=== PATIENT | male | born 1965 | race Caucasian/White ===

== ENCOUNTER 2019-05-06 15:25 | Inpatient (IN) | payer OTHER ==
[2019-05-06 15:46] LABS: ABSOLUTE EOSINOPHILS # (AUTO) 0.1 10^3/uL (0.0-0.6); ABSOLUTE LYMPHOCYTES (AUTO) 1.4 10^3/uL (0.5-4.7); ABSOLUTE MONOCYTES (AUTO) 0.6 10^3/uL (0.1-1.4); ABSOLUTE NEUT (AUTO) 1.5 10^3/uL (1.7-8.2); BASOPHILS % (AUTO) 0.5 % (0-2); EOSINOPHILS % (AUTO) 2.8 % (0-6); HEMATOCRIT 41.4 % (37.9-51.0); HEMOGLOBIN 14.4 g/dL (13.5-17.0); LYMPHOCYTES % (AUTO) 38.2 % (13-45); MEAN CORPUSCULAR HEMOGLOBIN 31.9 pg (27.0-33.4); MEAN CORPUSCULAR HGB CONC 34.8 g/dL (32.0-36.0); MEAN CORPUSCULAR VOLUME 92 fl (80-97); MONOCYTES % (AUTO) 15.7 % (3-13); PLATELET COUNT 163 10^3/uL (150-450); RED BLOOD COUNT 4.52 10^6/uL (4.35-5.55); RED CELL DISTRIBUTION WIDTH 12.6 % (11.5-14.0); SEGMENTED NEUTROPHILS % (AUTO) 42.8 % (42-78); TOTAL CELLS COUNTED % (AUTO) 100 %; WHITE BLOOD COUNT 3.6 10^3/uL (4.0-10.5)
--- NOTE | 2019-05-06 16:07 | ER Document Report ---
ED Medical Screen (RME) - General Chief Complaint: Chest Congestion Stated Complaint: CHEST PAIN Time Seen by Provider: 05/06/19 16:02 Mode of Arrival: Medic Information source: Parent Notes: 53-year-old male presented to ED for feeling cold jittery and shaky with chest pain with shortness of breath earlier. He states is no longer having any pain or shortness of breath. He states he took some decongestant at home. He states he is not had any other medications today. He is alert oriented respirations regular nonlabored. He did come by EMS but they did not give him any medications. I have greeted and performed a rapid initial assessment of this patient. A comprehensive ED assessment and evaluation of the patient, analysis of test results and completion of medical decision making process will be conducted by an additional ED providers. - Related Data Allergies/Adverse Reactions: amoxicillin Allergy (Verified 05/06/19 15:30) Penicillins Allergy (Verified 05/06/19 15:30) tetracycline Allergy (Verified 05/06/19 15:30) Past Medical History - General Information source: Patient - Social History Cigarette use (# per day): Yes Frequency of alcohol use: None Drug Abuse: None Lives with: Family Family history: Reviewed & Not Pertinent - Past Medical History Cardiac Medical History: Reports: None Pulmonary Medical History: Reports: None EENT Medical History: Reports: None Neurological Medical History: Reports: Hx Seizures Endocrine Medical History: Reports: None Renal/ Medical History: Reports: None Malignancy Medical History: Reports None GI Medical History: Reports: None Musculoskeltal Medical History: Reports None Skin Medical History: Reports None Psychiatric Medical History: Reports: None Traumatic Medical History: Reports: None Infectious Medical History: Reports: None Past Surgical History: Reports: Hx Neurologic Surgery - 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
[2019-05-06 16:18] LABS: ALBUMIN 4.4 g/dL (3.5-5.0); ALKALINE PHOSPHATASE 60 U/L (38-126); ANION GAP 9 (5-19); ASPARTATE AMINO TRANSFERASE 34 U/L (17-59); BILIRUBIN,DIRECT 0.2 mg/dL (0.0-0.4); BILIRUBIN,TOTAL 1.1 mg/dL (0.2-1.3); BLOOD UREA NITROGEN 16 mg/dL (7-20); CALCIUM 8.6 mg/dL (8.4-10.2); CARBON DIOXIDE 26 mmol/L (22-30); CHLORIDE 90 mmol/L (98-107); CREATINE KINASE 144 U/L (55-170); GLUCOSE 94 mg/dL (75-110); POTASSIUM 3.5 mmol/L (3.6-5.0); TOTAL PROTEIN 7.4 g/dL (6.3-8.2)
[2019-05-06 16:28] LABS: CREATINE KINASE MB 4.07 ng/mL (<4.55)
--- NOTE | 2019-05-06 16:28 | ER Document Report ---
ED General - General Chief Complaint: Chest Congestion Stated Complaint: CHEST PAIN Time Seen by Provider: 05/06/19 16:02 Primary Care Provider: DENNIS CRUZ PA-C [Primary Care Provider] - Follow up as needed Mode of Arrival: [facility] - [facility] Notes: Patient is a 53-year-old male who presents complaining of palpitations and feeling dizzy began at 7 AM today. Patient states that his palpitations were worse this morning and were intermittent for the next several hours. He did have CP this morning that has since resolved when he was having the palpitations. Patient does report some nasal congestion and discharge, but no other fever cough. He does have a history of seizures (lobectomy-Rt) and is on Keppra. He does not take any other medicines daily. Patient states that he does feel some fatigue at this time as well. He has been able to eat and drink, but does have decreased p.o. intake. He is urinating normally and having normal bowel movements. Denies any headache, fever, neck pain, changes in vision/speech/mentation/hearing, URI, sore throat, syncope, cough, shortness of breath, wheeze, dyspnea, abdominal pain, nausea/vomiting/diarrhea, urinary retention, dysuria, hematuria, loss of control of bowel or bladder, numbness/tingling, saddle anesthesia, muscle paralysis/weakness, or rash. - Related Data Allergies/Adverse Reactions: amoxicillin Allergy (Verified 05/06/19 15:30) Penicillins Allergy (Verified 05/06/19 15:30) tetracycline Allergy (Verified 05/06/19 15:30) Past Medical History - General Information source: Patient - Social History Smoking Status: Former Smoker Cigarette use (# per day): Yes Frequency of alcohol use: None Drug Abuse: None Lives with: Family Family History: Reviewed & Not Pertinent Patient has suicidal ideation: No Patient has homicidal ideation: No - Past Medical History Cardiac Medical History: Reports: None Pulmonary Medical History: Reports: None EENT Medical History: Reports: None Neurological Medical History: Reports: Hx Seizures Endocrine Medical History: Reports: None Renal/ Medical History: Reports: None Malignancy Medical History: Reports None GI Medical History: Reports: None Musculoskeletal Medical History: Reports None Skin Medical History: Reports None Psychiatric Medical History: Reports: None Traumatic Medical History: Reports: None Infectious Medical History: Reports: None Past Surgical History: Reports: Hx Neurologic Surgery - 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 A&Ox4. Ans wers questions appropriately. HEAD: Atraumatic, normocephalic. EYES: Pupils equal round and reactive to light, extraocular movements intact, sclera anicteric, conjunctiva are normal. ENT: Nares patent and without discharge. oropharynx clear without exudates. No tonsilar hypertrophy or erythema. Moist mucous membranes. NECK: Normal range of motion, supple without lymphadenopathy LUNGS: Breath sounds clear to auscultation bilaterally and equal. No wheezes rales or rhonchi. HEART: Regular rate and rhythm without murmurs, rubs, gallops. ABDOMEN: Soft, nontender, nondistended abdomen. No guarding, no rebound. Normal bowel sounds present. No CVA tenderness bilaterally. Musculoskeletal: FROM to passive/active. Strength 5+/5. Rubi neg. No asymmetry to LE's. Extremities: No cyanosis, clubbing, or edema b/l. Peripheral pulses 2+. Capillary refill less than 3 seconds. NEUROLOGICAL: Normal speech, normal gait. Cranial nerves grossly intact. NIH 0, GCS 15. PSYCH: flat affect. SKIN: Warm, Dry, normal turgor, no rashes or lesions noted. Course - Re-evaluation Re-evalutation: 05/06/19 17:45 I have been reviewing with Dr. Castro who is in agreement with admit/plan. 17:50 then again at 17:57 I spoke with hospitalist, Dr. Moyer, wants to add cortisol and for me to speak with Cardio in the meantime. 17:58 Dr. Lopez has no recommendations at this time. 18:[address] Moyer who wanted me to then speak to Dr. Tran, air press operator. Dr. Tran is not excited and does not believe this to warrant ICU. 18:06 I spoke again with Dr. Moyer who would like the cortisol level and to call him back. 05/06/19 18:50 Dr. Moyer wants me to talk with Dr. Yost when he is signed in. He did relay the case to him already. 05/06/19 21:[address] head negative. Call placed to Dr. Yost. 05/06/19 21:34 Dr. Yost believes this needs to go to ICU. Pt's BP currently 93/60. Solu- cortef IV ordered and anothe 500ml saline bolus. Call placed to ICU/air press operator. 05/06/19 22:39 I spoke in length with Alexis Westbrook PA-C, air press operator, regarding this patient. He does not believe this to be an ICU case and will talk with his supervising Dr. Tran who has already been initially updated about this patient. They will let me know thereafter about location to admit. 05/06/19 23:40 I spoke with Alexis Westbrook and he spoke with Dr. Tran and they are not accepting to the ICU. Call placed again to Dr. Yost. 05/07/19 00:00 Dr. Yost accepted to IMCU. - Vital Signs Vital signs: Temp Pulse Resp BP Pulse Ox 97.9 F 48 L 14 90/59 L 98 05/06/19 22:23 05/06/19 15:35 05/06/19 22:01 05/06/19 22:00 05/06/19 22:01 - Laboratory Result Diagrams: 05/06/19 14:53 05/06/19 14:53 Laboratory results interpreted by me: 05/06/19 05/06/19 05/06/19 14:53 14:53 20:01 WBC 3.6 L Lamar % (Auto) 15.7 H Absolute Neuts (auto) 1.5 L Sodium 125.3 L Potassium 3.5 L Chloride 90 L Urine Ketones 20 H Discharge - Discharge Clinical Impression: Bradycardia, Hyponatremia Hypothermia Qualifiers: Encounter type: initial encounter Qualified Code(s): T68.XXXA - Hypothermia, initial encounter Condition: Stable Disposition: ADMITTED INPATIENT Admitting Provider: Priyank (Hospitalist) Unit Admitted: IMCU Referrals: DENNIS CRUZ PA-C [Primary Care Provider] - Follow up as needed
--- NOTE | 2019-05-06 16:29 | RADIOLOGY REPORT (SQ) ---
EXAM DESCRIPTION: CHEST SINGLE VIEW COMPLETED DATE/TIME: 05/06/2019 4:17 pm REASON FOR STUDY: chest pain COMPARISON: None. TECHNIQUE: Single frontal radiographic view of the chest acquired. NUMBER OF VIEWS: One view. LIMITATIONS: None. FINDINGS: LUNGS AND PLEURA: No pneumothorax. No consolidation or pleural effusion. MEDIASTINUM AND HILAR STRUCTURES: Normal. HEART AND VASCULAR STRUCTURES: Normal. BONES: No acute findings. HARDWARE: None in the chest. OTHER: No other significant finding. IMPRESSION: NO ACUTE FINDINGS. TECHNICAL DOCUMENTATION: JOB ID: [id number] [place]-72 2010 [email or web address]- All Rights Reserved Reading location - IP/workstation name: [email or web address]
[2019-05-06] MEDS ORDERED: NORMAL SALINE 1000 ML 1,000 ML IV ONE ×2 (16:34→17:41)
[2019-05-06 16:37] LABS: TROPONIN I < 0.012 ng/mL
--- NOTE | 2019-05-06 19:12 | Progress Note ---
Provider Note Provider Note: Asked to evaluate this patient for the ICU. He is mildly hypothermic at 95 but on a warming blanket. Hyponatremic at 125. Drinks 7-8 large glasses of water a day. Likely polydipsia.. Cortisol a bit low at 19. Hydrocortisone, fluid restriction and warming blanket. He does not need an ICU level of care. Critical care time 20 minutes.
--- NOTE | 2019-05-06 20:02 | EKG REPORT ---
SEVERITY:- NORMAL ECG - SINUS BRADYCARDIA : Confirmed by: Mónica Haney MD 06-May-2019 20:01:48
[2019-05-06 20:31] LABS: APPEARANCE,URINE CLEAR; BILIRUBIN,URINE NEGATIVE (NEGATIVE); COLOR,URINE YELLOW; GLUCOSE, URINE NEGATIVE (NEGATIVE); KETONES,URINE 20 mg/dL (NEGATIVE); PROTEIN,URINE NEGATIVE (NEGATIVE); UROBILINOGEN,URINE NEGATIVE mg/dL (<2.0)
[2019-05-06 20:45] LABS: URINE AMPHETAMINES SCREEN NEGATIVE; URINE BARBITURATES SCREEN NEGATIVE; URINE BENZODIAZEPINES SCREEN NEGATIVE; URINE COCAINE SCREEN NEGATIVE; URINE MARIJUANA (THC) SCREEN NEGATIVE; URINE METHADONE SCREEN NEGATIVE; URINE PHENCYCLIDINE SCREEN NEGATIVE
--- NOTE | 2019-05-06 21:08 | RADIOLOGY REPORT (SQ) ---
EXAM DESCRIPTION: CT HEAD WITHOUT IV CONTRAST COMPLETED DATE/TME: 05/06/2019 19:38 CLINICAL HISTORY: 53 years, Male, hypothermia, hypotensive, h/o rt temp lobectomy COMPARISON: None. TECHNIQUE: Noncontrast CT of the head was performed. Coronal and sagittal reformations were created. Images stored on PACS. All CT scanners at this facility use dose modulation, iterative reconstruction, and/or weight based dosing when appropriate to reduce radiation dose to as low as reasonably achievable (ALARA). [facility]: Dose Right [facility]: CareDose [facility]: Dose Right [facility]: Teradose 4D [facility]: Geospiza LIMITATIONS: None. FINDINGS: Evaluation of the brain parenchyma reveals mild periventricular and patchy subcortical white matter low attenuation. In addition, there are postsurgical changes of right temporoparietal craniotomy with a zone of encephalomalacia located about the right temporal lobe, indicating a resection cavity. No acute intracranial hemorrhage, mass effect, or extra-axial fluid is seen. The ventricles and sulcal spaces are overall normal in size and configuration. Curvilinear calcification located about the posterior aspect of the right temporal lobe encephalomalacia actually corresponds to choroid plexus calcification within the right lateral ventricle. Globes and orbits show no acute abnormality. Mild opacity is noted about the bilateral maxillary antra as well as within the ethmoidal air cells. Remaining paranasal sinuses and mastoid air cells are clear. There are no depressed skull fractures. The sella is partially empty. IMPRESSION: No acute intracranial abnormality. Mild chronic microvascular ischemic change. Postsurgical changes of right temporoparietal craniotomy with resection cavity about the right temporal lobe. TECHNICAL DOCUMENTATION: Quality ID # [id number]: Final reports with documentation of one or more dose reduction techniques (e.g., Automated exposure control, adjustment of the mA and/or kV according to patient size, use of iterative reconstruction technique) copyright 2010 [email or web address]- All Rights Reserved
[2019-05-06] MEDS ORDERED: HYDROCORTISONE SOD SUCCINATE INJ/PF 100 MG/2 ML SDV IV ONE (21:31)
[2019-05-06] MEDS ORDERED: NORMAL SALINE 500 ML IV ONE (21:31)
[2019-05-06] MEDS: LEVETIRACETAM 500 MG TABLET PO ONE ×2 (22:30→22:39)
[2019-05-06] MEDS ORDERED: LEVETIRACETAM 500 MG/NACL-ISO 500 MG/100 ML RTUPB IV ONE (22:39)
[2019-05-07] MEDS ORDERED: MAG HYDROX/AL HYDROX/SIMETH SUSP 30 ML UDCUP PO PRN (00:01)
[2019-05-07] MEDS ORDERED: IPRATROPIUM/ALBUTEROL 0.5-2.5 MG/3 ML AMPUL NEB PRN (00:01)
[2019-05-07 00:29] LABS: ANION GAP 7 (5-19); BLOOD UREA NITROGEN 12 mg/dL (7-20); CALCIUM 7.9 mg/dL (8.4-10.2); CARBON DIOXIDE 23 mmol/L (22-30); CHLORIDE 98 mmol/L (98-107); PHOSPHORUS 2.4 mg/dL (2.5-4.5); POTASSIUM 3.4 mmol/L (3.6-5.0)
[2019-05-07 00:35] LABS: GLUCOSE 69 mg/dL (75-110)
[2019-05-07 00:50] LABS: CREATINE KINASE MB 3.26 ng/mL (<4.55)
[2019-05-07 00:51] LABS: TROPONIN I < 0.012 ng/mL
[2019-05-07] MEDS: NORMAL SALINE 1000 ML 1,000 ML IV PRN ×2 (01:11→05:51)
[2019-05-07] MEDS ORDERED: DOPAMINE HCL/DEXTROSE 5%-WATER 800 MG/250 ML RTUINJ IV PRN ×2 (01:55)
[2019-05-07] MEDS ORDERED: PHOSPHORUS #1 250 MG TABLET PO ONE (04:37)
[2019-05-07] MEDS ORDERED: DEXTROSE 50%-WATER 25 GM/50 ML DISP.SYRIN IV ONE (04:38)
[2019-05-07] MEDS: HYDROCORTISONE SOD SUCCINATE INJ/PF 100 MG/2 ML SDV IV SCH ×3 (05:49→20:17)
[2019-05-07] MEDS: HEPARIN SOD (PORCINE) 5,000 UNIT/ML 1 ML VIAL SUBCUT SCH ×3 (05:49→21:18)
[2019-05-07] MEDS: ACETAMINOPHEN 325 MG TABLET PO PRN ×2 (05:50→21:17)
--- NOTE | 2019-05-07 06:43 | PDOC H&P ---
History of Present Illness Admission Date/PCP: 05/07/19 00:03 DENNIS CRUZ PA-C Patient complains of: Dizziness History of Present Illness: NISA BANERJEE is a 53 year old male with a past medical history of epilepsy on Keppra who presents with several days of fatigue developing palpitations and dizziness upon standing prompting evaluation emergency room where he is found to have bradycardia, hypotension, hypothermia, hypokalemia and hyponatremia. Patient denies previous episode other than being told of low blood pressure by primary doctor in the past. denying recent headache, back pain, excessive fatigue, heat intolerance, steroid, diet supplementation or drugs. 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 Past Medical History Cardiac Medical History: Reports: None Pulmonary Medical History: Reports: None EENT Medical History: Reports: None Neurological Medical History: Reports: Seizures Endocrine Medical History: Reports: None Renal/ Medical History: Reports: None Malignancy Medical History: Reports: None GI Medical History: Reports: None Musculoskeltal Medical History: Reports: None Skin Medical History: Reports: None Psychiatric Medical History: Reports: None Traumatic Medical History: Reports: None Infectious Medical History: Reports: None Social History Information Source: Patient, Emergency Med Personnel Lives with: Family Smoking Status: Former Smoker Frequency of Alcohol Use: None Drugs: None - Advance Directive Resuscitation Status: Full Code Family History Family History: Thyroid Disfunction Parental Family History Reviewed: Yes Children Family History Reviewed: Yes Sibling(s) Family History Reviewed.: Yes Medication/Allergy Allergies/Adverse Reactions: amoxicillin Allergy (Verified 05/06/19 15:30) Penicillins Allergy (Verified 05/06/19 15:30) tetracycline Allergy (Verified 05/06/19 15:30) Review of Systems Constitutional: ABSENT: chills, fever(s), headache(s), weight gain, weight loss Eyes: ABSENT: visual disturbances Ears: ABSENT: hearing changes Cardiovascular: ABSENT: chest pain, dyspnea on exertion, edema, orthropnea, palpitations Respiratory: ABSENT: cough, hemoptysis Gastrointestinal: ABSENT: abdominal pain, constipation, diarrhea, hematemesis, hematochezia, nausea, vomiting Genitourinary: ABSENT: dysuria, hematuria Musculoskeletal: ABSENT: joint swelling Integumentary: ABSENT: rash, wounds Neurological: ABSENT: abnormal gait, abnormal speech, confusion, dizziness, focal weakness, syncope Psychiatric: ABSENT: anxiety, depression, homidical ideation, suicidal ideation Endocrine: ABSENT: cold intolerance, heat intolerance, polydipsia, polyuria Hematologic/Lymphatic: ABSENT: easy bleeding, easy bruising Physical Exam Vital Signs: Temp Pulse Resp BP Pulse Ox 97.9 F 56 L 20 89/45 L 97 05/07/19 03:59 05/07/19 03:59 05/07/19 03:59 05/07/19 03:59 05/07/19 03:59 Intake & Output 05/05/19 05/06/19 05/07/19 11:59 11:59 11:59 Intake Total 3619 Output Total 1600 Balance 2019 Weight 64.3 kg General appearance: PRESENT: no acute distress, cooperative, thin, well- developed, well-nourished. ABSENT: disheveled Head exam: PRESENT: atraumatic, normocephalic Eye exam: PRESENT: conjunctiva pink, EOMI, PERRLA. ABSENT: scleral icterus Ear exam: PRESENT: normal external ear exam Mouth exam: PRESENT: moist, tongue midline Neck exam: ABSENT: carotid bruit, JVD, lymphadenopathy, thyromegaly Respiratory exam: PRESENT: clear to auscultation thad. ABSENT: rales, rhonchi, wheezes Cardiovascular exam: PRESENT: bradycardia, +S1, +S2. ABSENT: diastolic murmur, rubs, systolic murmur Pulses: PRESENT: normal dorsalis pedis pul Vascular exam: PRESENT: normal capillary refill GI/Abdominal exam: PRESENT: normal bowel sounds, soft. ABSENT: distended, guarding, mass, organolmegaly, rebound, tenderness Rectal exam: PRESENT: deferred Extremities exam: PRESENT: full ROM. ABSENT: calf tenderness, clubbing, pedal edema Neurological exam: PRESENT: alert, awake, oriented to person, oriented to place, oriented to time, oriented to situation, CN II-XII grossly intact. ABSENT: motor sensory deficit Psychiatric exam: PRESENT: appropriate affect, normal mood. ABSENT: homicidal ideation, suicidal ideation Skin exam: PRESENT: dry, intact, warm. ABSENT: cyanosis, rash Results Laboratory Results: 05/06/19 14:53 05/06/19 23:40 05/06/19 05/06/19 05/06/19 14:53 14:53 15:38 WBC 3.6 L RBC 4.52 Hgb 14.4 Hct 41.4 MCV 92 MCH 31.9 MCHC 34.8 RDW 12.6 Plt Count 163 Seg Neutrophils % 42.8 Sodium 125.3 L Potassium 3.5 L Chloride 90 L Carbon Dioxide 26 Anion Gap 9 BUN 16 Creatinine 0.67 Est GFR ( Amer) > 60 Glucose 94 Calcium 8.6 Phosphorus Magnesium 1.8 Total Bilirubin 1.1 AST 34 Alkaline Phosphatase 60 Total Protein 7.4 Albumin 4.4 TSH Urine Color Urine Appearance Urine pH Ur Specific Carlock Urine Protein Urine Glucose (UA) Urine Ketones Urine Blood Urine RBC (Auto) 05/06/19 05/06/19 05/06/19 15:38 20:01 23:40 WBC RBC Hgb Hct MCV MCH MCHC RDW Plt Count Seg Neutrophils % Sodium 127.7 L Potassium 3.4 L Chloride 98 Carbon Dioxide 23 Anion Gap 7 BUN 12 Creatinine 0.64 Est GFR ( Amer) > 60 Glucose 69 L Calcium 7.9 L Phosphorus 2.4 L Magnesium 1.9 Total Bilirubin AST Alkaline Phosphatase Total Protein Albumin TSH 4.19 Urine Color YELLOW Urine Appearance CLEAR Urine pH 6.0 Ur Specific Carlock 1.010 Urine Protein NEGATIVE Urine Glucose (UA) NEGATIVE Urine Ketones 20 H Urine Blood NEGATIVE Urine RBC (Auto) 0 05/06/19 05/06/19 05/06/19 14:53 14:53 18:01 Creatine Kinase 144 CK-MB (CK-2) 4.07 Troponin I < 0.012 < 0.012 05/06/19 05/06/19 23:40 23:40 Creatine Kinase 109 CK-MB (CK-2) 3.26 Troponin I < 0.012 Impressions: Chest X-Ray 05/06/19 15:27 IMPRESSION: NO ACUTE FINDINGS. Head CT 05/06/19 19:38 IMPRESSION: No acute intracranial abnormality. Mild chronic microvascular ischemic change. Postsurgical changes of right temporoparietal craniotomy with resection cavity about the right temporal lobe. TECHNICAL DOCUMENTATION: Quality ID # 436: Final reports with documentation of one or more dose reduction techniques (e.g., Automated exposure control, adjustment of the mA and/or kV according to patient size, use of iterative reconstruction technique) copyright 2011 [employer]- All Rights Reserved Assessment and Plan - Diagnosis (1) Adrenal insufficiency Is this a current diagnosis for this admission?: Yes Plan: Atypical with hypo-thermia and bradycardia but probable adrenal insufficiency from unclear cause, Solu-Cortef continued consider cosyntropin stim test (2) Hypotension Is this a current diagnosis for this admission?: Yes Plan: Solu-Cortef and IV fluids, follow-up orthostatic blood pressure (3) Hypokalemia Is this a current diagnosis for this admission?: Yes Plan: Likely secondary to #1, potassium repletion. Follow-up chemistry (4) Hypophosphatemia Is this a current diagnosis for this admission?: Yes Plan: Unclear cause, check vitamin D level K-Phos repletion ordered (5) Bradycardia Is this a current diagnosis for this admission?: Yes Plan: Unclear cause, follow-up telemetry and head CT, consider MRI (6) Hyponatremia Is this a current diagnosis for this admission?: Yes Plan: Normal saline challenge, follow-up chemistry (7) Hypothermia Qualifiers: Encounter type: initial encounter Qualified Code(s): T68.XXXA - Hypothermia, initial encounter Is this a current diagnosis for this admission?: Yes Plan: Follow-up TSH and cosyntropin stim test - Time Time Spent with patient: 25-34 minutes - Inpatient Certification Medical Necessity: Need Close Monitoring Due to Risk of Patient Decompensation
[2019-05-07 07:20] LABS: CREATINE KINASE MB 2.94 ng/mL (<4.55); TROPONIN I < 0.012 ng/mL
[2019-05-07] MEDS: PHOSPHORUS #1 250 MG TABLET PO SCH ×4 (08:17→21:17)
[2019-05-07] MEDS ORDERED: SUMATRIPTAN SUCCINATE 100 MG TABLET PO PRN (11:40)
[2019-05-07] MEDS ORDERED: LEVETIRACETAM 500 MG/NACL-ISO 500 MG/100 ML RTUPB IV ONE (12:15)
[2019-05-07 13:16] LABS: CREATINE KINASE MB 3.35 ng/mL (<4.55)
[2019-05-07 13:22] LABS: FREE T3 1.62 pg/mL (2.77-5.27); FREE T4 (FREE THYROXINE) 0.89 ng/dL (0.78-2.19)
[2019-05-07 13:26] LABS: TROPONIN I < 0.012 ng/mL
[2019-05-07 13:35] LABS: THYROID STIMULATING HORMONE 1.26 uIU/mL (0.47-4.68)
[2019-05-07] MEDS: LEVETIRACETAM 500 MG/NACL-ISO 500 MG/100 ML RTUPB IV SCH (21:18)
[2019-05-08] MEDS: HEPARIN SOD (PORCINE) 5,000 UNIT/ML 1 ML VIAL SUBCUT SCH ×3 (05:19→21:23)
[2019-05-08] MEDS: HYDROCORTISONE SOD SUCCINATE INJ/PF 100 MG/2 ML SDV IV SCH ×3 (05:22→21:22)
[2019-05-08 07:19] LABS: ABSOLUTE LYMPHOCYTES (AUTO) 0.7 10^3/uL (0.5-4.7); ABSOLUTE MONOCYTES (AUTO) 0.5 10^3/uL (0.1-1.4); ABSOLUTE NEUT (AUTO) 4.4 10^3/uL (1.7-8.2); BASOPHILS % (AUTO) 0.3 % (0-2); HEMATOCRIT 33.3 % (37.9-51.0); LYMPHOCYTES % (AUTO) 12.3 % (13-45); MEAN CORPUSCULAR HEMOGLOBIN 31.6 pg (27.0-33.4); MEAN CORPUSCULAR HGB CONC 34.7 g/dL (32.0-36.0); MEAN CORPUSCULAR VOLUME 91 fl (80-97); MONOCYTES % (AUTO) 8.2 % (3-13); PLATELET COUNT 149 10^3/uL (150-450); RED BLOOD COUNT 3.65 10^6/uL (4.35-5.55); RED CELL DISTRIBUTION WIDTH 12.8 % (11.5-14.0); SEGMENTED NEUTROPHILS % (AUTO) 79.2 % (42-78); TOTAL CELLS COUNTED % (AUTO) 100 %; WHITE BLOOD COUNT 5.5 10^3/uL (4.0-10.5)
[2019-05-08 07:20] LABS: HEMOGLOBIN 11.6 g/dL (13.5-17.0)
[2019-05-08] MEDS: LEVETIRACETAM 500 MG/NACL-ISO 500 MG/100 ML RTUPB IV SCH ×2 (09:15→21:22)
[2019-05-08] MEDS: MULTIVITAMIN TABLET PO SCH (09:15)
[2019-05-08 11:18] LABS: BLOOD UREA NITROGEN 10 mg/dL (7-20); CALCIUM 8.6 mg/dL (8.4-10.2); CHLORIDE 108 mmol/L (98-107); GLUCOSE 115 mg/dL (75-110)
[2019-05-08 11:35] LABS: ANION GAP 5 (5-19); CARBON DIOXIDE 27 mmol/L (22-30); POTASSIUM 3.3 mmol/L (3.6-5.0)
--- NOTE | 2019-05-08 17:18 | PDOC PROGRESS REPORT ---
Subjective Progress Note for:: 05/08/19 Subjective:: No adverse events overnight. No new complaints. Body temperature, heart rate, and blood pressure have been acceptable. Reason For Visit: HYPOTENSION,BRADYCARDIA,HYPOTHERMIA,ADRENAL INSUF Physical Exam Vital Signs: Temp Pulse Resp BP Pulse Ox 97.4 F 72 16 103/64 98 05/08/19 13:31 05/08/19 14:20 05/08/19 14:20 05/08/19 13:31 05/08/19 14:20 Intake & Output 05/07/19 05/08/19 05/09/19 06:59 06:59 06:59 Intake Total 3919 2495 100 Output Total 3600 1800 Balance 319 695 100 Weight 64.3 kg 65.3 kg General appearance: PRESENT: no acute distress, cooperative, thin Respiratory exam: PRESENT: clear to auscultation thad, symmetrical, unlabored. ABSENT: accessory muscle use, chest wall tenderness, crackles, prolonged expiratory phas, rhonchi, tachypnea, wheezes Cardiovascular exam: PRESENT: RRR, +S1, +S2 Pulses: PRESENT: normal carotid pulses Vascular exam: PRESENT: normal capillary refill GI/Abdominal exam: PRESENT: normal bowel sounds, soft. ABSENT: distended, guarding, rebound, tenderness Extremities exam: ABSENT: clubbing, pedal edema Musculoskeletal exam: PRESENT: normal inspection. ABSENT: deformity Neurological exam: PRESENT: alert, awake, oriented to person, oriented to place, oriented to situation Psychiatric exam: PRESENT: appropriate affect, normal mood Skin exam: PRESENT: dry, warm Results Laboratory Results: 05/08/19 06:39 05/08/19 06:39 05/08/19 05/08/19 06:39 06:39 WBC 5.5 RBC 3.65 L Hgb 11.6 L D Hct 33.3 L MCV 91 MCH 31.6 MCHC 34.7 RDW 12.8 Plt Count 149 L Seg Neutrophils % 79.2 H Sodium 139.9 Potassium 3.3 L Chloride 108 H Carbon Dioxide 27 Anion Gap 5 BUN 10 Creatinine 0.68 Est GFR ( Amer) > 60 Glucose 115 H Calcium 8.6 05/06/19 05/06/19 05/06/19 14:53 14:53 18:01 Creatine Kinase 144 CK-MB (CK-2) 4.07 Troponin I < 0.012 < 0.012 05/06/19 05/06/19 05/07/19 23:40 23:40 06:24 Creatine Kinase 109 119 CK-MB (CK-2) 3.26 Troponin I < 0.012 05/07/19 05/07/19 05/07/19 06:24 12:25 12:25 Creatine Kinase 124 CK-MB (CK-2) 2.94 3.35 Troponin I < 0.012 < 0.012 Impressions: Chest X-Ray 05/06/19 15:27 IMPRESSION: NO ACUTE FINDINGS. Head CT 05/06/19 19:38 IMPRESSION: No acute intracranial abnormality. Mild chronic microvascular ischemic change. Postsurgical changes of right temporoparietal craniotomy with resection cavity about the right temporal lobe. TECHNICAL DOCUMENTATION: Quality ID # 436: Final reports with documentation of one or more dose reduction techniques (e.g., Automated exposure control, adjustment of the mA and/or kV according to patient size, use of iterative reconstruction technique) copyright 2011 [employer]- All Rights Reserved Assessment and Plan - Diagnosis (1) Adrenal insufficiency Is this a current diagnosis for this admission?: Yes Plan: His heart rate, blood pressure, body temperature, and sodium have all normalized since starting steroids. I do not know if it is correlation or causation. However, the plan is to complete 3 days of stress dose steroids, and then to wait 24 hours off steroids and then do a cosyntropin stimulation test. Once the test results are in, he can be discharged home assuming that his condition remains good. The test will determine whether or not he will need steroid replacement therapy. He will also need to have a thyroid panel repeated in about 2 weeks. (2) Bradycardia Is this a current diagnosis for this admission?: Yes (3) Hyponatremia Is this a current diagnosis for this admission?: Yes (4) Hypotension Is this a current diagnosis for this admission?: Yes (5) Hypothermia Qualifiers: Encounter type: initial encounter Qualified Code(s): T68.XXXA - Hypothermia, initial encounter Is this a current diagnosis for this admission?: Yes - Time Time Spent with patient: 15-24 minutes
[2019-05-08] MEDS: ACETAMINOPHEN 325 MG TABLET PO PRN (21:22)
[2019-05-08] MEDS ORDERED: DIPHENHYDRAMINE HCL 25 MG/10 ML UDC PO ONE (22:00)
[2019-05-09] MEDS: HEPARIN SOD (PORCINE) 5,000 UNIT/ML 1 ML VIAL SUBCUT SCH ×3 (05:55→21:11)
[2019-05-09] MEDS: HYDROCORTISONE SOD SUCCINATE INJ/PF 100 MG/2 ML SDV IV SCH ×3 (05:57→21:14)
[2019-05-09] MEDS ORDERED: HYDROCORTISONE 1% CREAM 28.35 GM TP PRN (08:28)
--- NOTE | 2019-05-09 08:35 | PDOC PROGRESS REPORT ---
Subjective Progress Note for:: 05/09/19 Subjective:: 05/09/2019-maculopapular rash bilateral lower extremities Reason For Visit: HYPOTENSION,BRADYCARDIA,HYPOTHERMIA,ADRENAL INSUF Physical Exam Vital Signs: Temp Pulse Resp BP Pulse Ox 97.4 F 62 16 101/59 L 98 05/09/19 06:57 05/09/19 07:51 05/09/19 07:51 05/09/19 06:57 05/09/19 07:51 Intake & Output 05/08/19 05/09/19 05/10/19 06:59 06:59 06:59 Intake Total 2495 2341 Output Total 1800 3950 Balance 695 -1609 Weight 65.3 kg 65.9 kg General appearance: PRESENT: no acute distress, well-developed, well-nourished Neck exam: ABSENT: carotid bruit, JVD, lymphadenopathy, thyromegaly Respiratory exam: PRESENT: clear to auscultation thad. ABSENT: rales, rhonchi, wheezes Cardiovascular exam: PRESENT: RRR. ABSENT: diastolic murmur, rubs, systolic murmur Pulses: PRESENT: normal dorsalis pedis pul Vascular exam: PRESENT: normal capillary refill GI/Abdominal exam: PRESENT: normal bowel sounds, soft. ABSENT: distended, guarding, mass, organolmegaly, rebound, tenderness Extremities exam: PRESENT: full ROM. ABSENT: calf tenderness, clubbing, pedal edema Neurological exam: PRESENT: alert, awake, oriented to person, oriented to place, oriented to time, oriented to situation, CN II-XII grossly intact. ABSENT: motor sensory deficit Psychiatric exam: PRESENT: appropriate affect, normal mood. ABSENT: homicidal ideation, suicidal ideation Skin exam: PRESENT: other - Maculopapular rash consistent with contact dermatitis bilateral lower extremities Results Laboratory Results: 05/08/19 06:39 05/08/19 06:39 05/08/19 06:39 Sodium 139.9 Potassium 3.3 L Chloride 108 H Carbon Dioxide 27 Anion Gap 5 BUN 10 Creatinine 0.68 Est GFR ( Amer) > 60 Glucose 115 H Calcium 8.6 05/06/19 05/06/19 05/06/19 14:53 14:53 18:01 Creatine Kinase 144 CK-MB (CK-2) 4.07 Troponin I < 0.012 < 0.012 05/06/19 05/06/19 05/07/19 23:40 23:40 06:24 Creatine Kinase 109 119 CK-MB (CK-2) 3.26 Troponin I < 0.012 05/07/19 05/07/19 05/07/19 06:24 12:25 12:25 Creatine Kinase 124 CK-MB (CK-2) 2.94 3.35 Troponin I < 0.012 < 0.012 Impressions: Chest X-Ray 05/06/19 15:27 IMPRESSION: NO ACUTE FINDINGS. Head CT 05/06/19 19:38 IMPRESSION: No acute intracranial abnormality. Mild chronic microvascular ischemic change. Postsurgical changes of right temporoparietal craniotomy with resection cavity about the right temporal lobe. TECHNICAL DOCUMENTATION: Quality ID # 436: Final reports with documentation of one or more dose reduction techniques (e.g., Automated exposure control, adjustment of the mA and/or kV according to patient size, use of iterative reconstruction technique) copyright 2011 [employer]- All Rights Reserved Assessment and Plan - Diagnosis (1) Adrenal insufficiency Is this a current diagnosis for this admission?: Yes Plan: His heart rate, blood pressure, body temperature, and sodium have all normalized since starting steroids. I do not know if it is correlation or causation. However, the plan is to complete 3 days of stress dose steroids, and then to wait 24 hours off steroids and then do a cosyntropin stimulation test. Once the test results are in, he can be discharged home assuming that his condition remains good. The test will determine whether or not he will need steroid replacement therapy. He will also need to have a thyroid panel repeated in about 2 weeks. 05/09/2019-patient remains on steroids at this time stress dosing after 3 days patient will go off steroids for 24 hours due to drug cosyntropin stimulation test. If stable may be discharged home (2) Contact dermatitis Is this a current diagnosis for this admission?: Yes Plan: 05/09/2019-hydrocortisone cream 3 times daily as needed (3) Bradycardia Is this a current diagnosis for this admission?: Yes Plan: Unclear cause, follow-up telemetry and head CT, consider MRI 05/09/2019-heart rate in the 60s. Continue to follow (4) Hyponatremia Is this a current diagnosis for this admission?: Yes Plan: Normal saline challenge, follow-up chemistry 05/09/2019-stable (5) Hypotension Is this a current diagnosis for this admission?: Yes Plan: Solu-Cortef and IV fluids, follow-up orthostatic blood pressure 05/09/2019-stable continue to follow at this time (6) Hypothermia Qualifiers: Encounter type: initial encounter Qualified Code(s): T68.XXXA - Hypothermi a, initial encounter Is this a current diagnosis for this admission?: Yes Plan: Follow-up TSH and cosyntropin stim test 05/09/2019-temp 97.4. Stable continue to follow - Time Time Spent with patient: 15-24 minutes - Inpatient Certification Based on my medical assessment, after consideration of the patient's comorbidities, presenting symptoms, or acuity I expect that the services needed warrant INPATIENT care.: Yes I certify that my determination is in accordance with my understanding of Medicare's requirements for reasonable and necessary INPATIENT services [42 CFR 412.3e].: Yes Medical Necessity: Significant Comorbidiites Make Outpatient Treatment Too Risky, Need Close Monitoring Due to Risk of Patient Decompensation, Need For IV Fluids
[2019-05-09] MEDS ORDERED: POTASSIUM CHLORIDE 10 MEQ TABLET.ER PO ONE (09:00)
[2019-05-09] MEDS: MULTIVITAMIN TABLET PO SCH (09:09)
[2019-05-09] MEDS: LEVETIRACETAM 500 MG/NACL-ISO 500 MG/100 ML RTUPB IV SCH ×2 (09:54→21:13)
[2019-05-09] MEDS ORDERED: LEVETIRACETAM 500 MG TABLET PO SCH (10:00)
[2019-05-09] MEDS ORDERED: SUMATRIPTAN SUCCINATE 100 MG TABLET PO PRN (13:13)
[2019-05-09] MEDS: ACETAMINOPHEN 325 MG TABLET PO PRN (21:13)
[2019-05-10 05:08] LABS: HEMATOCRIT 32.2 % (37.9-51.0); HEMOGLOBIN 11.3 g/dL (13.5-17.0); MEAN CORPUSCULAR HEMOGLOBIN 32.6 pg (27.0-33.4); MEAN CORPUSCULAR HGB CONC 35.2 g/dL (32.0-36.0); MEAN CORPUSCULAR VOLUME 92 fl (80-97); PLATELET COUNT 140 10^3/uL (150-450); RED BLOOD COUNT 3.48 10^6/uL (4.35-5.55); RED CELL DISTRIBUTION WIDTH 12.9 % (11.5-14.0); WHITE BLOOD COUNT 5.4 10^3/uL (4.0-10.5)
[2019-05-10 05:35] LABS: ANION GAP 7 (5-19); BLOOD UREA NITROGEN 15 mg/dL (7-20); CALCIUM 8.7 mg/dL (8.4-10.2); CARBON DIOXIDE 28 mmol/L (22-30); CHLORIDE 104 mmol/L (98-107); GLUCOSE 118 mg/dL (75-110); POTASSIUM 3.6 mmol/L (3.6-5.0)
[2019-05-10] MEDS: HEPARIN SOD (PORCINE) 5,000 UNIT/ML 1 ML VIAL SUBCUT SCH ×3 (06:12→21:43)
[2019-05-10] MEDS: LEVETIRACETAM 500 MG/NACL-ISO 500 MG/100 ML RTUPB IV SCH ×2 (09:10→21:45)
[2019-05-10] MEDS: MULTIVITAMIN TABLET PO SCH (09:10)
--- NOTE | 2019-05-10 09:29 | PDOC PROGRESS REPORT ---
Subjective Progress Note for:: 05/10/19 Subjective:: 05/09/2019-maculopapular rash bilateral lower extremities 05/10/2019-no complaints Reason For Visit: HYPOTENSION,BRADYCARDIA,HYPOTHERMIA,ADRENAL INSUF Physical Exam Vital Signs: Temp Pulse Resp BP Pulse Ox 98.2 F 95 18 102/57 L 100 05/10/19 06:58 05/10/19 06:58 05/10/19 06:58 05/10/19 06:58 05/10/19 06:58 Intake & Output 05/09/19 05/10/19 05/11/19 06:59 06:59 06:59 Intake Total 2341 2120 Output Total 3950 5200 Balance -1609 -3080 Weight 65.9 kg 66.6 kg General appearance: PRESENT: no acute distress, well-developed, well-nourished Neck exam: ABSENT: carotid bruit, JVD, lymphadenopathy, thyromegaly Respiratory exam: PRESENT: clear to auscultation thad. ABSENT: rales, rhonchi, wheezes Cardiovascular exam: PRESENT: RRR. ABSENT: diastolic murmur, rubs, systolic murmur Pulses: PRESENT: normal dorsalis pedis pul Vascular exam: PRESENT: normal capillary refill GI/Abdominal exam: PRESENT: normal bowel sounds, soft. ABSENT: distended, guarding, mass, organolmegaly, rebound, tenderness Extremities exam: PRESENT: full ROM. ABSENT: calf tenderness, clubbing, pedal edema Neurological exam: PRESENT: alert, awake, oriented to person, oriented to place, oriented to time, oriented to situation, CN II-XII grossly intact. ABSENT: motor sensory deficit Psychiatric exam: PRESENT: appropriate affect, normal mood. ABSENT: homicidal ideation, suicidal ideation Skin exam: PRESENT: dry, intact, rash - Macular rash bilateral knees scattered down bilateral lower extremities, warm. ABSENT: cyanosis Results Laboratory Results: 05/10/19 04:00 05/10/19 04:00 05/10/19 05/10/19 04:00 04:00 WBC 5.4 RBC 3.48 L Hgb 11.3 L Hct 32.2 L MCV 92 MCH 32.6 MCHC 35.2 RDW 12.9 Plt Count 140 L Sodium 139.3 Potassium 3.6 Chloride 104 Carbon Dioxide 28 Anion Gap 7 BUN 15 Creatinine 0.70 Est GFR ( Amer) > 60 Glucose 118 H Calcium 8.7 05/06/19 05/06/19 05/06/19 14:53 14:53 18:01 Creatine Kinase 144 CK-MB (CK-2) 4.07 Troponin I < 0.012 < 0.012 05/06/19 05/06/19 05/07/19 23:40 23:40 06:24 Creatine Kinase 109 119 CK-MB (CK-2) 3.26 Troponin I < 0.012 05/07/19 05/07/19 05/07/19 06:24 12:25 12:25 Creatine Kinase 124 CK-MB (CK-2) 2.94 3.35 Troponin I < 0.012 < 0.012 Impressions: Chest X-Ray 05/06/19 15:27 IMPRESSION: NO ACUTE FINDINGS. Head CT 05/06/19 19:38 IMPRESSION: No acute intracranial abnormality. Mild chronic microvascular ischemic change. Postsurgical changes of right temporoparietal craniotomy with resection cavity about the right temporal lobe. TECHNICAL DOCUMENTATION: Quality ID # 436: Final reports with documentation of one or more dose reduction techniques (e.g., Automated exposure control, adjustment of the mA and/or kV according to patient size, use of iterative reconstruction technique) copyright 2011 [employer]- All Rights Reserved Assessment and Plan - Diagnosis (1) Adrenal insufficiency Is this a current diagnosis for this admission?: Yes Plan: His heart rate, blood pressure, body temperature, and sodium have all normalized since starting steroids. I do not know if it is correlation or causation. However, the plan is to complete 3 days of stress dose steroids, and then to wait 24 hours off steroids and then do a cosyntropin stimulation test. Once the test results are in, he can be discharged home assuming that his condition remains good. The test will determine whether or not he will need steroid replacement therapy. He will also need to have a thyroid panel repeated in about 2 weeks. 05/09/2019-patient remains on steroids at this time stress dosing after 3 days patient will go off steroids for 24 hours due to drug cosyntropin stimulation test. If stable may be discharged home 05/10/2019-cosyntropin stimulation test in the a.m. (2) Contact dermatitis Is this a current diagnosis for this admission?: Yes Plan: 05/09/2019-hydrocortisone cream 3 times daily as needed 05/10/2019-continue hydrocortisone cream (3) Bradycardia Is this a current diagnosis for this admission?: Yes Plan: Unclear cause, follow-up telemetry and head CT, consider MRI 05/09/2019-heart rate in the 60s. Continue to follow 05/10/2019-stable (4) Hyponatremia Is this a current diagnosis for this admission?: Yes Plan: Normal saline challenge, follow-up chemistry 05/09/2019-stable 05/10/2019-stable (5) Hypotension Is this a current diagnosis for this admission?: Yes Plan: Solu-Cortef and IV fluids, follow-up orthostatic blood pressure 05/09/2019-stable continue to follow at this time 05/10/2019-stable (6) Hypothermia Qualifiers: Encounter type: initial encounter Qualified Code(s): T68.XXXA - Hypothermia, initial encounter Is this a current diagnosis for this admission?: Yes Plan: Follow-up TSH and cosyntropin stim test 05/09/2019-temp 97.4. Stable continue to follow 05/10/2019-stable - Time Time Spent with patient: 15-24 minutes - Inpatient Certification Based on my medical assessment, after consideration of the patient's comorbidities, presenting symptoms, or acuity I expect that the services needed warrant INPATIENT care.: Yes I certify that my determination is in accordance with my understanding of Medicare's requirements for reasonable and necessary INPATIENT services [42 CFR 412.3e].: Yes Medical Necessity: Significant Comorbidiites Make Outpatient Treatment Too Risky, Need Close Monitoring Due to Risk of Patient Decompensation
[2019-05-10] MEDS ORDERED: NORMAL SALINE 1000 ML 1,000 ML IV PRN (10:54)
[2019-05-10] MEDS: MIDODRINE HCL 5 MG TABLET PO SCH ×2 (13:23→17:16)
[2019-05-11] MEDS ORDERED: DEXTROSE 40% GEL 15 GM TUBE PO PRN ×2 (06:37)
[2019-05-11] MEDS ORDERED: DEXTROSE 50%-WATER 25 GM/50 ML DISP.SYRIN IV PRN ×2 (06:37)
[2019-05-11] MEDS ORDERED: GLUCAGON,HUMAN RECOMB 1 MG INJ SUBCUT PRN (06:37)
[2019-05-11] MEDS: HEPARIN SOD (PORCINE) 5,000 UNIT/ML 1 ML VIAL SUBCUT SCH (07:53)
--- NOTE | 2019-05-11 09:11 | PDOC DISCHARGE SUMMARY ---
Impression - Admit/DC Date/PCP Admission Date/Primary Care Provider: 05/07/19 00:03 DENNIS CRUZ PA-C Discharge Date: 05/11/19 - Discharge Diagnosis (1) Adrenal insufficiency Is this a current diagnosis for this admission?: Yes (2) Contact dermatitis Is this a current diagnosis for this admission?: Yes (3) Bradycardia Is this a current diagnosis for this admission?: Yes (4) Hyponatremia Is this a current diagnosis for this admission?: Yes (5) Hypotension Is this a current diagnosis for this admission?: Yes (6) Hypothermia Is this a current diagnosis for this admission?: Yes - Additional Information Resuscitation Status: Full Code Discharge Diet: As Tolerated Discharge Activity: Activity As Tolerated Referrals: DENNIS CRUZ PA-C [Primary Care Provider] - Follow up as needed Prescriptions: Clotrimazole/Betamethasone Dip [Clotrimazole-Betamethasone Lot] 30 ml TP TID 10 Days #30 lotion Prednisolone 5 mg PO DAILY #30 tablet Midodrine HCl [Proamatine 5 mg Tablet] 5 mg PO TID #90 tablet Home Medications: Levetiracetam [Keppra Xr 500 mg Tab.sr] 500 mg PO Q12 05/07/19 Multivitamin [Tab-A-Jennifer (Multiple Vitamin) Tablet] 1 tab PO DAILY 05/07/19 Sumatriptan Succinate [Imitrex 100 mg Tablet] 100 mg PO ASDIR PRN 05/07/19 Clotrimazole/Betamethasone Dip [Clotrimazole-Betamethasone Lot] 30 ml TP TID 10 Days #30 lotion 05/11/19 Midodrine HCl [Proamatine 5 mg Tablet] 5 mg PO TID #90 tablet 05/11/19 Prednisolone 5 mg PO DAILY #30 tablet 05/11/19 History of Present Illiness History of Present Illness: NISA BANERJEE is a 53 year old male who presented to the ER with dizziness Hospital Course Hospital Course: Patient presented to ER with past medical history of epilepsy on Keppra with a several day history of fatigue developing palpitations and dizziness upon standing. Patient was found to have bradycardia, hypotension, hypothermia, hypokalemia and hyponatremia. Patient denied any previous episodes other than being told he was had low blood pressure by his primary care practitioner. He denied any headache back pain or other symptomology. 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 Patient is being discharged home this time and will follow up with endocrinology and his primary care practitioner. I have placed patient on prednisolone 5 mg p.o. daily I have also placed patient on Midrin 5 mg p.o. 3 times daily to help with his hypotension. Patient does have an allergy to red dye and is unable to take several medications here in the hospital. Patient has been educated to the plan of care and is in agreement. Physical Exam Vital Signs: Temp Pulse Resp BP Pulse Ox 98.0 F 53 L 17 109/56 L 97 05/11/19 07:05 05/11/19 07:05 05/11/19 07:05 05/11/19 07:05 05/11/19 07:05 Intake & Output 05/10/19 05/11/19 05/12/19 06:59 06:59 06:59 Intake Total 2120 2845 Output Total 5200 4650 Balance -3080 -1805 Weight 66.6 kg 65.7 kg General appearance: PRESENT: no acute distress, well-developed, well-nourished Head exam: PRESENT: atraumatic, normocephalic Eye exam: PRESENT: conjunctiva pink, EOMI, PERRLA. ABSENT: scleral icterus Ear exam: PRESENT: normal external ear exam Mouth exam: PRESENT: moist, tongue midline Neck exam: ABSENT: carotid bruit, JVD, lymphadenopathy, thyromegaly Respiratory exam: PRESENT: clear to auscultation thad. ABSENT: rales, rhonchi, wheezes Cardiovascular exam: PRESENT: RRR. ABSENT: diastolic murmur, rubs, systolic murmur Pulses: PRESENT: normal dorsalis pedis pul Vascular exam: PRESENT: normal capillary refill GI/Abdominal exam: PRESENT: normal bowel sounds, soft. ABSENT: distended, guarding, mass, organolmegaly, rebound, tenderness Rectal exam: PRESENT: deferred Extremities exam: PRESENT: full ROM. ABSENT: calf tenderness, clubbing, pedal edema Neurological exam: PRESENT: alert, awake, oriented to person, oriented to place, oriented to time, oriented to situation, CN II-XII grossly intact. ABSENT: motor sensory deficit Psychiatric exam: PRESENT: appropriate affect, normal mood. ABSENT: homicidal ideation, suicidal ideation Skin exam: PRESENT: dry, intact, warm, other - Maculopapular rash on the lower extremities. ABSENT: cyanosis, rash Results Laboratory Results: WBC 5.4 10^3/uL (4.0-10.5) 05/10/19 04:00 RBC 3.48 10^6/uL (4.35-5.55) L 05/10/19 04:00 Hgb 11.3 g/dL (13.5-17.0) L 05/10/19 04:00 Hct 32.2 % (37.9-51.0) L 05/10/19 04:00 MCV 92 fl (80-97) 05/10/19 04:00 MCH 32.6 pg (27.0-33.4) 05/10/19 04:00 MCHC 35.2 g/dL (32.0-36.0) 05/10/19 04:00 RDW 12.9 % (11.5-14.0) 05/10/19 04:00 Plt Count 140 10^3/uL (150-450) L 05/10/19 04:00 Lymph % (Auto) 12.3 % (13-45) L 05/08/19 06:39 [place] % (Auto) 8.2 % (3-13) 05/08/19 06:39 Eos % (Auto) 0.0 % (0-6) 05/08/19 06:39 Baso % (Auto) 0.3 % (0-2) 05/08/19 06:39 Absolute Neuts (auto) 4.4 10^3/uL (1.7-8.2) 05/08/19 06:39 Absolute Lymphs (auto) 0.7 10^3/uL (0.5-4.7) 05/08/19 06:39 Absolute Monos (auto) 0.5 10^3/uL (0.1-1.4) 05/08/19 06:39 Absolute Eos (auto) 0.0 10^3/uL (0.0-0.6) 05/08/19 06:39 Absolute Basos (auto) 0.0 10^3/uL (0.0-0.2) 05/08/19 06:39 Seg Neutrophils % 79.2 % (42-78) H 05/08/19 06:39 Sodium 139.3 mmol/L (137-145) 05/10/19 04:00 Potassium 3.6 mmol/L (3.6-5.0) 05/10/19 04:00 Chloride 104 mmol/L (98-107) 05/10/19 04:00 Carbon Dioxide 28 mmol/L (22-30) 05/10/19 04:00 Anion Gap 7 (5-19) 05/10/19 04:00 BUN 15 mg/dL (7-20) 05/10/19 04:00 Creatinine 0.70 mg/dL (0.52-1.25) 05/10/19 04:00 Est GFR ( Amer) > 60 (>60) 05/10/19 04:00 Est GFR (MDRD) Non-Af > 60 (>60) 05/10/19 04:00 Glucose 118 mg/dL (75-110) H 05/10/19 04:00 Lactic Acid (Sepsis) 0.8 mmol/L (0.7-2.1) 05/06/19 23:40 Calcium 8.7 mg/dL (8.4-10.2) 05/10/19 04:00 Phosphorus 2.4 mg/dL (2.5-4.5) L 05/06/19 23:40 Magnesium 1.9 mg/dL (1.6-2.3) 05/06/19 23:40 Total Bilirubin 1.1 mg/dL (0.2-1.3) 05/06/19 14:53 Direct Bilirubin 0.2 mg/dL (0.0-0.4) 05/06/19 14:53 Neonat Total Bilirubin Not Reportable 05/06/19 14:53 Neonat Direct Bilirubin Not Reportable 05/06/19 14:53 Neonat Indirect Bili Not Reportable 05/06/19 14:53 AST 34 U/L (17-59) 05/06/19 14:53 ALT 21 U/L (<50) 05/06/19 14:53 Alkaline Phosphatase 60 U/L (38-126) 05/06/19 14:53 Creatine Kinase 124 U/L (55-170) 05/07/19 12:25 CK-MB (CK-2) 3.35 ng/mL (<4.55) 05/07/19 12:25 Troponin I < 0.012 ng/mL 05/07/19 12:25 Total Protein 7.4 g/dL (6.3-8.2) 05/06/19 14:53 Albumin 4.4 g/dL (3.5-5.0) 05/06/19 14:53 Vitamin D 25-Hydroxy 72.0 ng/mL (14.7-68.3) H 05/07/19 12:25 Vit D 1,25-Dihydroxy 87.9 pg/mL (19.9-79.3) H 05/07/19 12:25 TSH 1.26 uIU/mL (0.47-4.68) 05/07/19 12:25 Free T4 0.89 ng/dL (0.78-2.19) 05/07/19 12:25 Free T3 pg/mL 1.62 pg/mL (2.77-5.27) L 05/07/19 12:25 Random Cortisol 19.00 ug/dL (None Established) 05/06/19 15:38 Cortisol AM Sample 1.47 ug/dL (4.46-22.7) L 05/11/19 04:56 Urine Color YELLOW 05/06/19 20:01 Urine Appearance CLEAR 05/06/19 20:01 Urine pH 6.0 (5.0-9.0) 05/06/19 20:01 Ur Specific [place] 1.010 05/06/19 20:01 Urine Protein NEGATIVE mg/dL (NEGATIVE) 05/06/19 20:01 Urine Glucose (UA) NEGATIVE mg/dL (NEGATIVE) 05/06/19 20:01 Urine Ketones 20 mg/dL (NEGATIVE) H 05/06/19 20:01 Urine Blood NEGATIVE (NEGATIVE) 05/06/19 20:01 Urine Nitrite (Reflex) NEGATIVE (NEGATIVE) 05/06/19 20:01 Urine Bilirubin NEGATIVE (NEGATIVE) 05/06/19 20:01 Urine Urobilinogen NEGATIVE mg/dL (<2.0) 05/06/19 20:01 Leukocyte Esterase Rfl NEGATIVE (NEGATIVE) 05/06/19 20:01 Urine RBC (Auto) 0 /HPF 05/06/19 20:01 Urine Mucus (Auto) RARE /LPF 05/06/19 20:01 Urine Ascorbic Acid NEGATIVE (NEGATIVE) 05/06/19 20:01 Urine Opiates Screen NEGATIVE 05/06/19 20:01 Urine Methadone Screen NEGATIVE 05/06/19 20:01 Ur Barbiturates Screen NEGATIVE 05/06/19 20:01 Levetiracetam 6.2 ug/mL (10.0-40.0) L 05/06/19 15:38 Levetiracetam Cancelled 05/06/19 15:38 Ur Phencyclidine Scrn NEGATIVE 05/06/19 20:01 Ur Amphetamines Screen NEGATIVE 05/06/19 20:01 U Benzodiazepines Scrn NEGATIVE 05/06/19 20:01 Urine Cocaine Screen NEGATIVE 05/06/19 20:01 U Marijuana (THC) Screen NEGATIVE 05/06/19 20:01 05/06/19 05/06/19 05/06/19 14:53 18:01 23:40 CK-MB (CK-2) 4.07 3.26 Troponin I < 0.012 < 0.012 < 0.012 05/07/19 05/07/19 06:24 12:25 CK-MB (CK-2) 2.94 3.35 Troponin I < 0.012 < 0.012 Impressions: Chest X-Ray 05/06/19 15:27 IMPRESSION: NO ACUTE FINDINGS. Head CT 05/06/19 19:38 IMPRESSION: No acute intracranial abnormality. Mild chronic microvascular ischemic change. Postsurgical changes of right temporoparietal craniotomy with resection cavity about the right temporal lobe. TECHNICAL DOCUMENTATION: Quality ID # [id number]: Final reports with documentation of one or more dose reduction techniques (e.g., Automated exposure control, adjustment of the mA and/or kV according to patient size, use of iterative reconstruction technique) copyright 2011 [employer]- All Rights Reserved Plan Time Spent: Greater than 30 Minutes Stroke Is this a Stroke Patient?: No Acute Heart Failure - Is this a Heart Failure Patient?: No
[2019-05-11] MEDS: MIDODRINE HCL 5 MG TABLET PO SCH (09:50)
[2019-05-11] MEDS: MULTIVITAMIN TABLET PO SCH (09:50)
[2019-05-11] MEDS: LEVETIRACETAM 500 MG/NACL-ISO 500 MG/100 ML RTUPB IV SCH (09:57)
[2019-05-11 10:42] VITALS: BP 104/63
== END 2019-05-11 10:56 | disposition home or self-care (01) | DRG 644 ==
LOC: ER 15:25 → EH 05-07 00:03 → 3W 05-07 03:35
PROVIDERS: ADMIT Internal Medicine; ATTEND Internal Medicine
DX: E27.40 Unspecified adrenocortical insufficiency (principal); E87.1 Hypo-osmolality and hyponatremia; I95.9 Hypotension, unspecified; R00.1 Bradycardia, unspecified; T68.XXXA Hypothermia, initial encounter; L25.9 Unspecified contact dermatitis, unspecified cause; G40.909 Epilepsy, unspecified, not intractable, without status epilepticus; E87.6 Hypokalemia; E83.39 Other disorders of phosphorus metabolism; Z88.1 Allergy status to other antibiotic agents; Z88.0 Allergy status to penicillin; Z87.891 Personal history of nicotine dependence
CPT/HCPCS: 36415; 51701; 70450; 71045; 80048; 80053; 80177; 80307; 81001; 82306; 82533; 82550; 82553; 82652; 83605; 83735; 84100; 84439; 84443; 84481; 84484; 85025; 85027; 87040; 93005; 93010; 96361; 96365; 96375; 99285; J1265; J1644; J1720; J1953; J3490; J7030; J7040; J7620